=== PATIENT | female | born 1980 | race Caucasian/White ===

== ENCOUNTER 2020-06-19 15:19 | Emergency (ER) | payer OTHER ==
[2020-06-19 15:25] VITALS: TEMP 98.7
[2020-06-19] MEDS ORDERED: AMOXIC-POT CLAV 875MG STARTER PACK 2 TAB BTL PO STA (15:34)
[2020-06-19] MEDS ORDERED: DIPH,PERTUS(ACELL)TETVAC-LF 0.5 ML VIAL IM ONE (15:34)
[2020-06-19] MEDS ORDERED: HYDROcodone/APAP 5-325MG 1 EACH TAB PO STA (15:46)
[2020-06-19] MEDS ORDERED: LIDOCAINE 1% INJ 10MG/ML (20 ML MDV) SQ STA (16:08)
--- NOTE | 2020-06-19 16:30 | XR ---
EXAMINATION TYPE: XR hand complete LT DATE OF EXAM: 06/19/2020 COMPARISON: None HISTORY: Dogbite third and fourth digits TECHNIQUE: Three-view left hand FINDINGS: No acute fractures or dislocations are evident. An old fracture of the fifth metacarpal is not excluded. No radiopaque foreign bodies are evident. The soft tissues appear normal. Follow-up studies can be performed 7-10 days from acute trauma. IMPRESSION: 1. Normal three-view left hand
--- NOTE | 2020-06-19 17:27 | ED ---
General Adult HPI - General Chief complaint: Animal Bite Stated complaint: dog bite to Lt middle and ring fingers Time Seen by Provider: 06/19/20 15:30 Source: patient, RN notes reviewed, old records reviewed Mode of arrival: ambulatory Limitations: no limitations - History of Present Illness Initial comments: 40-year-old female patient to ED for evaluation of dog bite. Patient reports that her dog bit her left hand. Patient has bite wounds to the third and fourth digit. Patient also was bit on the anterior aspect of her right tibia. Once on her anterior right chest region. Reports that her dog is up-to-date on vaccinations. Her last tetanus was 7 years ago. Patient is having some pain to her right hand. Systemic: Pt denies fatigue, fever/chills, rash. Pt denies weakness, night sweats, weight loss. Neuro: Pt denies headache, visual disturbances, syncope or pre-syncope. HEENT: Pt denies ocular discharge or irritation, otalgia, rhinorrhea, pharyngitis or notable lymphadenopathy. Cardiopulmonary: Pt denies chest pain, SOB, heart palpitations, dyspnea on exertion. Abdominal/GI: Pt denies abdominal pain, n/v/d. : Pt denies dysuria, burning w/ urination, frequency/urgency. Denies new onset urinary or bowel incontinence. MSK: Pt denies myalgia, loss of strength or function in extremities. Neuro: Pt denies new onset weakness, paresthesias. - Related Data Previous Rx's Medication Instructions Recorded Amoxicillin/Potassium Clav 1 each PO Q12HR 10 Days #20 tab 06/19/20 [Augmentin 875-125 Tablet] Allergies Allergy/AdvReac Type Severity Reaction Status Date / Time shellfish derived [Shellfish] Allergy Anaphylaxis Verified 06/19/20 15:26 warfarin [From Coumadin] AdvReac blood Verified 06/19/20 15:26 thins out too much Review of Systems ROS Statement: Those systems with pertinent positive or pertinent negative responses have been documented in the HPI. ROS Other: All systems not noted in ROS Statement are negative. Past Medical History Past Medical History: Heart Failure, Hypertension Additional Past Medical History / Comment(s): CHF, History of Any Multi-Drug Resistant Organisms: None Reported Additional Past Surgical History / Comment(s): lap band, hand surgery, Past Psychological History: Anxiety, Depression Smoking Status: Current every day smoker Past Alcohol Use History: None Reported Past Drug Use History: Marijuana General Exam - General Exam Comments Initial Comments: Constitutional: NAD, AOX3, Pt has pleasant affect. HEENT: NC/AT, trachea midline, neck supple, no lymphadenopathy. External ears appear normal, without discharge. Mucous membranes moist. Eyes PERRLA, EOM intact. There is no scleral icterus. No pallor noted. Cardiopulmonary: RRR, no murmurs, rubs or gallops, no JVD noted. Lungs CTAB in anterior and posterior wilkerson. No peripheral edema. Abdominal exam: Abdomen soft and non-distended. Neuro: CN II-XII grossly intact. No nuchal rigidity. MSK: Multiple small superficial lacerations to the third and fourth digit of the left hand. This is both on the dorsal and palmar aspect. Patient does have one laceration which is about 1.5 cm on the lateral aspect of the digit which can be opened. These lacerations are all vigorously irrigated with 1 L of normal saline. The right anterior tibial abrasion is irrigated but does not require any closure. Patient declined irrigation to the right anterior chest abrasion. Patient is ambulatory. Patient does have decreased active range of motion of the third digit due to pain and is complaining of some subjective paresthesias. Gross sensation is intact. Neurovascularly intact. All other range of motion of digits is intact. Limitations: no limitations Course Vital Signs 06/19/20 06/19/20 15:21 17:38 Temperature 98.7 F Pulse Rate 89 79 Respiratory 18 16 Rate Blood Pressure 105/73 135/74 O2 Sat by Pulse 98 99 Oximetry Medical Decision Making - Medical Decision Making 40-year-old female patient to ED for evaluation of dog bite. She will signs stable, afebrile. Tetanus updated. All these wounds are vigorously irrigated. There is one laceration which is about 1.5 cm and is open which I did recommend a simple interrupted suture. Patient is declining this. I did do loose approximation with a Steri-Strip. Patient third digit was placed in a straight finger splint. We'll discharge the patient primary care provider and orthopedic consult tomorrow and return precautions. Placed on Augmentin. Case discussed with Dr. Maldonado. Disposition Clinical Impression: Dog bite Disposition: HOME SELF-CARE Instructions (If sedation given, give patient instructions): Animal Bite (ED) Additional Instructions: Follow up with PCP tomorrow. Follow up with orthopedic surgeon in 1-2 days. Return to ED with any worsening symptoms. Remove steristrip in 7 days if it does not fall off on its own. Please monitor for signs and symptoms of infection including: redness, warmth, drainage, discharge. Please return to ED if these signs or symptoms occur, new signs or symptoms develop or if condition worsens in anyway. Prescriptions: Amoxicillin/Potassium Clav [Augmentin 875-125 Tablet] 1 each PO Q12HR 10 Days #20 tab Is patient prescribed a controlled substance at d/c from ED?: No Referrals: Neil Miles MD [Primary Care Provider] - 1-2 days Juan Pablo Estevez DO [Doctor of Osteopathic Medicine] - 1-2 days
[2020-06-19 17:38] VITALS: BP 135/74; PULSE 79; RESP 16
== END 2020-06-19 17:37 | disposition home or self-care (01) ==
LOC: EC 15:19
DX: S61.213A Laceration without foreign body of left middle finger without damage to nail, initial encounter (principal); S61.215A Laceration without foreign body of left ring finger without damage to nail, initial encounter; S80.811A Abrasion, right lower leg, initial encounter; F17.200 Nicotine dependence, unspecified, uncomplicated; Z88.8 Allergy status to other drugs, medicaments and biological substances; Z91.013 Allergy to seafood; Z23 Encounter for immunization; W54.0XXA Bitten by dog, initial encounter
CPT/HCPCS: 90471; 90715; 99284

== ENCOUNTER 2024-01-08 10:36 | Emergency (ER) | payer OTHER ==
--- NOTE | 2024-01-08 11:12 | ED ---
Abdominal Pain HPI - General Chief Complaint: Abdominal Pain Stated Complaint: lower abdominal pain Time Seen by Provider: 01/08/24 11:09 Source: patient, RN notes reviewed Mode of arrival: ambulatory Limitations: no limitations - History of Present Illness Initial Comments: 44-year-old female presenting to the ER with a chief complaint of cramping lower abdominal pain. Patient states she was having heavy vaginal bleeding for 42 days. Bleeding subsided on 01-04-2024. She states she was unable to use tampons as they would "fall out" from the blood. She states the abdominal cramping at that time was very mild rating it a 2 out of 10. She states for the past 48 hours the pain has intensified. She denies any current vaginal bleeding or blood thinner use. Denies any urinary complaints, constipation/diarrhea, nausea, vomiting. She denies a history of uterine fibroids. She is unable to follow-up with [facility] as they are booked. She denies any dizziness, lightheadedness, chest pain, shortness of breath or peripheral edema. - Related Data Previous Rx's Medication Instructions Recorded Amoxicillin/Potassium Clav 1 each PO Q12HR 10 Days #20 tab 06/19/20 [Augmentin 875-125 Tablet] Allergies Allergy/AdvReac Type Severity Reaction Status Date / Time shellfish derived [Shellfish] Allergy Anaphylaxis Verified 01/08/24 10:41 warfarin [From Coumadin] AdvReac blood Verified 01/08/24 10:41 thins out too much Review of Systems ROS Statement: Those systems with pertinent positive or pertinent negative responses have been documented in the HPI. ROS Other: All systems not noted in ROS Statement are negative. Past Medical History Past Medical History: Heart Failure, Hypertension, Pulmonary Embolus (PE) Additional Past Medical History / Comment(s): CHF, History of Any Multi-Drug Resistant Organisms: None Reported Past Surgical History: Tubal Ligation Additional Past Surgical History / Comment(s): lap band, hand surgery, Past Psychological History: Anxiety, Depression Smoking Status: Current every day smoker Past Alcohol Use History: None Reported Past Drug Use History: Marijuana General Exam Limitations: no limitations General appearance: alert, in no apparent distress Respiratory exam: Present: normal lung sounds bilaterally. Absent: respiratory distress, wheezes, rales, rhonchi, stridor Cardiovascular Exam: Present: regular rate, normal rhythm, normal heart sounds. Absent: systolic murmur, diastolic murmur, rubs, gallop, clicks GI/Abdominal exam: Present: soft, tenderness (suprapubic), normal bowel sounds External exam: Present: normal external exam Speculum exam: Present: normal speculum exam Skin exam: Present: warm, dry, intact, normal color. Absent: rash Course Vital Signs 01/08/24 10:37 Temperature 97.8 F Pulse Rate 83 Respiratory 18 Rate Blood Pressure 145/96 O2 Sat by Pulse 98 Oximetry Medical Decision Making - Medical Decision Making Was pt. sent in by a medical professional or institution (, PA, SMT MACHINE OPERATOR, urgent care, hospital, or [place] health care facility...) When possible be specific @ -No Did you speak to anyone other than the patient for history (EMS, parent, family, police, friend...)? What history was obtained from this source @ -No Did you review nursing and triage notes (agree or disagree)? Why? @ -I reviewed and agree with nursing and triage notes Were old charts reviewed (outside hosp., previous admission, EMS record, old EKG, old radiological studies, urgent care reports/EKG's, [place] health care facility records)? Report findings @ -No old charts were reviewed Differential Diagnosis (chest pain, altered mental status, abdominal pain women, abdominal pain men, vaginal bleeding, weakness, fever, dyspnea, syncope, headache, dizziness, GI bleed, back pain, seizure, CVA, palpatations, mental health, musculoskeletal)? @ -Differential Vaginal Bleeding:Spontaneous , threatened , molar , ectopic , bloody show, incompetent cervix, abruptioplacenta, placenta previa, uterine rupture, dysfunctional uterine bleeding, hemorrhage, uterine fibroids, this is not meant to be an all-inclusive list. EKG interpreted by me (3pts min.). @ -None X-rays interpreted by me (1pt min.). @ -None done CT interpreted by me (1pt min.). @ -None done U/S interpreted by me (1pt. min.). @ -Transvaginal ultrasound significant for large fibroid measuring 8.7 x 6.2 x 7.5 cm. Findings suggesting adenomyosis. What testing was considered but not performed or refused? (CT, X-rays, U/S, labs)? Why? @ -None What meds were considered but not given or refused? Why? @ -None Did you discuss the management of the patient with other professionals (professionals i.e. , PA, SMT MACHINE OPERATOR, lab, RT, psych nurse, social media executive, skip tender, teacher, resident medical officer, case resolution specialist)? Give summary @ -No Was smoking cessation discussed for >3mins.? @ -No Was critical care preformed (if so, how long)? @ -No Were there social determinants of health that impacted care today? How? (Homelessness, low income, unemployed, alcoholism, drug addiction, transport ation, low edu. Level, literacy, decrease access to med. care, longterm, rehab)? @ -No Was there de-escalation of care discussed even if they declined (Discuss DNR or withdrawal of care, Hospice)? DNR status @ -No What co-morbidities impacted this encounter? (DM, HTN, Smoking, COPD, CAD, Cancer, CVA, ARF, Chemo, Hep., AIDS, mental health diagnosis, sleep apnea, morbid obesity)? @ -None Was patient admitted / discharged? Hospital course, mention meds given and route, prescriptions, significant lab abnormalities, going to OR and other pertinent info. @ -Discharge. 44-year-old female presented to the ER with a chief complaint of lower abdominal cramping. Patient also reports heavy vaginal bleeding for 42 days. Denies blood thinner use. History and physical exam completed. Vitals stable. Patient no signs acute distress and nontoxic-appearing. Suprapubic abdominal pain to palpation with normal bowel sounds. Pelvic exam completed and chaperoned by Sandy Pope RN. No active cervical bleeding. Due to concern of anemia with vaginal bleeding laboratory studies obtained. Hemoglobin stable at 15.8. CMP unimpressive. Urinanalysis significant for trace blood which may be contamination from vaginal bleeding. Transvaginal ultrasound suggesting adenomyosis. Patient received IV fluids, Zofran and Tylenol for symptom control in the ER, with improvement. Upon reevaluation, patient resting comfortably in exam room in no signs of acute distress. Results discussed with patient, all questions answered. I advised follow-up with [facility], referral given. Strict return parameters discussed. Patient discharged in stable condition. Patient verbally expressed understanding and agreement with care plan. Case discussed with ED attending, Dr. Hicks. Undiagnosed new problem with uncertain prognosis? @ -No Drug Therapy requiring intensive monitoring for toxicity (Heparin, Nitro, Insulin, Cardizem)? @ -No Were any procedures done? @ -No Diagnosis/symptom? @ -Uterine fibroid vs adenomyosis Acute, or Chronic, or Acute on Chronic? @ -Acute Uncomplicated (without systemic symptoms) or Complicated (systemic symptoms)? @ -Uncomplicated Side effects of treatment? @ -No Exacerbation, Progression, or Severe Exacerbation? @ -No Poses a threat to life or bodily function? How? (Chest pain, [place], [place], pneumonia, PE, COPD, DKA, ARF, appy, cholecystitis, CVA, Diverticulitis, Homicidal, Suic idal, threat to staff... and all critical care pts) @ -Low likelihood - Lab Data Result diagrams: 01/08/24 11:47 01/08/24 11:47 Lab Results 01/08/24 01/08/24 01/08/24 Range/Units 11:47 11:47 11:47 WBC 10.2 (3.8-10.6) k/uL RBC 5.54 H (3.80-5.40) m/uL Hgb 15.8 (11.4-16.0) gm/dL Hct 49.1 H (34.0-46.0) % MCV 88.6 (80.0-100.0) fL MCH 28.5 (25.0-35.0) pg MCHC 32.1 (31.0-37.0) g/dL RDW 12.6 (11.5-15.5) % Plt Count 339 (150-450) k/uL MPV 9.2 Neutrophils % 77 % Lymphocytes % 14 % Monocytes % 6 % Eosinophils % 1 % Basophils % 1 % Neutrophils # 7.8 H (1.3-7.7) k/uL Lymphocytes # 1.5 (1.0-4.8) k/uL Monocytes # 0.6 (0-1.0) k/uL Eosinophils # 0.1 (0-0.7) k/uL Basophils # 0.1 (0-0.2) k/uL Sodium (137-145) mmol/L Potassium (3.5-5.1) mmol/L Chloride (98-107) mmol/L Carbon Dioxide (22-30) mmol/L Anion Gap mmol/L BUN (7-17) mg/dL Creatinine (0.52-1.04) mg/dL Est GFR (CKD-EPI)AfAm (>60 ml/min/1.73 sqM) Est GFR (CKD-EPI)NonAf (>60 ml/min/1.73 sqM) Glucose (74-99) mg/dL Plasma Lactic Acid Jose (0.7-2.0) mmol/L Calcium (8.4-10.2) mg/dL Total Bilirubin (0.2-1.3) mg/dL AST (14-36) U/L ALT (4-34) U/L Alkaline Phosphatase (38-126) U/L Total Protein (6.3-8.2) g/dL Albumin (3.5-5.0) g/dL Urine Color Yellow Urine Appearance Cloudy H (Clear) Urine pH 6.0 (5.0-8.0) Ur Specific [place] 1.027 (1.001-1.035) Urine Protein Trace H (Negative) Urine Glucose (UA) Negative (Negative) Urine Ketones Negative (Negative) Urine Blood Trace H (Negative) Urine Nitrite Negative (Negative) Urine Bilirubin Negative (Negative) Urine Urobilinogen <2.0 (<2.0) mg/dL Ur Leukocyte Esterase Small H (Negative) Urine RBC 3 (0-5) /hpf Urine WBC 1 (0-5) /hpf Ur Squamous Epith Cells 6 H (0-4) /hpf Urine Bacteria Occasional H (None) /hpf Urine Mucus Many H (None) /hpf Urine Yeast (Budding) Occasional H (None) /hpf Urine HCG, Qual Not Detected (Not Detectd) 01/08/24 01/08/24 Range/Units 11:47 11:47 WBC (3.8-10.6) k/uL RBC (3.80-5.40) m/uL Hgb (11.4-16.0) gm/dL Hct (34.0-46.0) % MCV (80.0-100.0) fL MCH (25.0-35.0) pg MCHC (31.0-37.0) g/dL RDW (11.5-15.5) % Plt Count (150-450) k/uL MPV Neutrophils % % Lymphocytes % % Monocytes % % Eosinophils % % Basophils % % Neutrophils # (1.3-7.7) k/uL Lymphocytes # (1.0-4.8) k/uL Monocytes # (0-1.0) k/uL Eosinophils # (0-0.7) k/uL Basophils # (0-0.2) k/uL Sodium 138 (137-145) mmol/L Potassium 4.4 (3.5-5.1) mmol/L Chloride 104 (98-107) mmol/L Carbon Dioxide 24 (22-30) mmol/L Anion Gap 10 mmol/L BUN 14 (7-17) mg/dL Creatinine 0.76 (0.52-1.04) mg/dL Est GFR (CKD-EPI)AfAm >90 (>60 ml/min/1.73 sqM) Est GFR (CKD-EPI)NonAf >90 (>60 ml/min/1.73 sqM) Glucose 99 (74-99) mg/dL Plasma Lactic Acid Jose 1.3 (0.7-2.0) mmol/L Calcium 10.0 (8.4-10.2) mg/dL Total Bilirubin 0.6 (0.2-1.3) mg/dL AST 39 H (14-36) U/L ALT 33 (4-34) U/L Alkaline Phosphatase 64 (38-126) U/L Total Protein 8.8 H (6.3-8.2) g/dL Albumin 4.9 (3.5-5.0) g/dL Urine Color Urine Appearance (Clear) Urine pH (5.0-8.0) Ur Specific [place] (1.001-1.035) Urine Protein (Negative) Urine Glucose (UA) (Negative) Urine Ketones (Negative) Urine Blood (Negative) Urine Nitrite (Negative) Urine Bilirubin (Negative) Urine Urobilinogen (<2.0) mg/dL Ur Leukocyte Esterase (Negative) Urine RBC (0-5) /hpf Urine WBC (0-5) /hpf Ur Squamous Epith Cells (0-4) /hpf Urine Bacteria (None) /hpf Urine Mucus (None) /hpf Urine Yeast (Budding) (None) /hpf Urine HCG, Qual (Not Detectd) - Radiology Data Radiology results: report reviewed, image reviewed Disposition Clinical Impression: Abnormal uterine bleeding due to adenomyosis Disposition: HOME SELF-CARE Condition: Stable Instructions (If sedation given, give patient instructions): Endometriosis (ED), Abnormal (Dysfunctional) Uterine Bleeding (ED) Additional Instructions: Pleasef ollow-up with [facility], referral given. Return to the ER for any new or worsening symptoms. Is patient prescribed a controlled substance at d/c from ED?: No Referrals: Neil Miles MD [Primary Care Provider] - 1-2 days Pricilla Zaldivar DO [Doctor of Osteopathic Medicine] - 1-2 days Time of Disposition: 12:28
[2024-01-08 11:35] VITALS: RESP 18; TEMP 97.8
[2024-01-08] MEDS: ACETAMINOPHEN TAB 325 MG TAB PO STA (11:39)
[2024-01-08] MEDS: SODIUM CHLORIDE 0.9% 1,000 ML IV STA (11:46)
[2024-01-08] MEDS: ONDANSETRON 4 MG/2 ML VIAL IVP STA (11:46)
--- NOTE | 2024-01-08 11:55 | US ---
EXAMINATION TYPE: US transvaginal DATE OF EXAM: 01/08/2024 COMPARISON: NONE CLINICAL INDICATION: Female, 44 years old with history of abd cramping vag bleeding x42 days; Vag ble eding and cramping x 42 days, passing clots TECHNIQUE: Transvaginal (TV). Transvaginal sonographic images were medically necessary to better as sess the following anatomy: Endometrium Date of LMP: 11/27/23 EXAM MEASUREMENTS: Uterus: 11.9x8.2x7.4 cm Endometrial Stripe: 1.7 cm Right Ovary: obscured by bowel Left Ovary: obscured by bowel 1. Uterus: Anteverted, retroflexed very large attenuating fibroid areas exhibiting venetian blind s ign. Largest area measured at the right fundal portion of uterus measuring 8.7x6.2x7.5cm, difficult t o delineate other distinct areas due to shadowing/attenuation 2. Endometrium: pushed to the left due to large fibroid 3. Right Ovary: Obscured by overlying bowel gas 4. Left Ovary: Obscured by overlying bowel gas 5. Bilateral Adnexa: Obscured by overlying bowel gas 6. Posterior cul-de-sac: wnl exam limited by bowel gas, very large fibroids, and attenuation/shadowing from fibroids IMPRESSION: 1. Findings suggestive of adenomyosis. This can be confirmed with MRI pelvis with IV contrast. 2. Fibroid uterus. 3. Endometrium within normal limits for size. 4. Nonvisualization the ovaries due to bowel gas.
[2024-01-08 11:58] LABS: Basophils # (A) 0.1 k/uL (0-0.2); Basophils % (A) 1 %; Eosinophils # (A) 0.1 k/uL (0-0.7); Eosinophils % (A) 1 %; HCT 49.1 % (34.0-46.0); HGB 15.8 gm/dL (11.4-16.0); Lymphocytes # (A) 1.5 k/uL (1.0-4.8); Lymphocytes % (A) 14 %; MCH 28.5 pg (25.0-35.0); MCHC 32.1 g/dL (31.0-37.0); MCV 88.6 fL (80.0-100.0); Mean Platelet Volume 9.2; Monocytes # (A) 0.6 k/uL (0-1.0); Monocytes % (A) 6 %; Neutrophils # (A) 7.8 k/uL (1.3-7.7); Neutrophils % (A) 77 %; Platelet Count 339 k/uL (150-450); RBC 5.54 m/uL (3.80-5.40); RDW 12.6 % (11.5-15.5); WBC 10.2 k/uL (3.8-10.6)
[2024-01-08 12:11] LABS: ALT 33 U/L (4-34); AST 39 U/L (14-36); African American GFR (CKD) >90 (>60 ml/min/1.73 sqM); Albumin 4.9 g/dL (3.5-5.0); Alkaline Phosphatase 64 U/L (38-126); Anion Gap 10 mmol/L; Appearance,Urine Cloudy (Clear); Bacteria,Urine Occasional /hpf; Bilirubin,Urine Negative (Negative); Blood Urea Nitrogen 14 mg/dL (7-17); Blood,Urine Trace (Negative); Budding Yeast,Urine Occasional /hpf; Carbon Dioxide 24 mmol/L (22-30); Chloride 104 mmol/L (98-107); Color,Urine Yellow; Glucose 99 mg/dL (74-99); Glucose,Urine (UA) Negative (Negative); Ketones,Urine Negative (Negative); Leukocyte Esterase,Urine Small (Negative); Mucus,Urine Many /hpf; Nitrite,Urine Negative (Negative); Non-African American GFR(CKD) >90 (>60 ml/min/1.73 sqM); Potassium 4.4 mmol/L (3.5-5.1); Protein,Urine Trace (Negative); RBC,Urine 3 /hpf (0-5); Sodium 138 mmol/L (137-145); Specific Gravity,Urine 1.027 (1.001-1.035); Squamous Epithelial Cell,Urine 6 /hpf (0-4); Total Bilirubin 0.6 mg/dL (0.2-1.3); Total Protein 8.8 g/dL (6.3-8.2); Urobilinogen,Urine <2.0 mg/dL (<2.0); WBC,Urine 1 /hpf (0-5)
[2024-01-08 13:30] VITALS: BP 124/75; PULSE 64
== END 2024-01-08 12:56 | disposition home or self-care (01) ==
LOC: EC 10:36
DX: N80.03 Adenomyosis of the uterus (principal); F17.200 Nicotine dependence, unspecified, uncomplicated; F12.90 Cannabis use, unspecified, uncomplicated; Z91.013 Allergy to seafood; Z88.8 Allergy status to other drugs, medicaments and biological substances
CPT/HCPCS: 36415; 80053; 83605; 85025; 81001; 81025; 76830; 99284; 96374; 96361; J2405